=== PATIENT | male | born 1955 | race Caucasian/White ===

== ENCOUNTER 2023-07-11 11:58 | Outpatient (CLI) | payer MEDICARE | END 2023-07-11 11:59 | disposition home or self-care (01) | LOC: SCSMRI 11:58 | PROVIDERS: ATTEND Internal Medicine | DX: R41.3 Other amnesia (principal); J34.1 Cyst and mucocele of nose and nasal sinus | CPT/HCPCS: 70551 ==

== ENCOUNTER 2023-12-31 07:27 | Outpatient (CLI) | payer MEDICARE | END 2023-12-31 07:28 | disposition home or self-care (01) | LOC: ULT 07:27 | PROVIDERS: ATTEND Internal Medicine | DX: M25.552 Pain in left hip (principal); I82.401 Acute embolism and thrombosis of unspecified deep veins of right lower extremity; M16.12 Unilateral primary osteoarthritis, left hip ==